=== PATIENT | male | born 1965 | race African-American/Black ===

== ENCOUNTER 2025-01-13 18:14 | Emergency (ER) | payer OTHER, MEDICARE, MEDICAID ==
[~2025-01-13] VITALS: Ht 188 cm; Wt 78.0 kg
[~2025-01-13 18:14] MED LIST: AMLO10TA80 PO; CEFD300C3 MT; CLON0.1T PO
[2025-01-13 18:33] VITALS: BP 144/90; PULSE 102; RESP 18; TEMP 37; O2SAT 98
== END 2025-01-13 20:11 | disposition home or self-care (01) ==
LOC: ER 18:14
DX: F10.129 Alcohol abuse with intoxication, unspecified (principal); J44.9 Chronic obstructive pulmonary disease, unspecified; I10 Essential (primary) hypertension; Z79.899 Other long term (current) drug therapy; V89.2XXA Person injured in unspecified motor-vehicle accident, traffic, initial encounter; Y93.89 Activity, other specified; Y92.410 Unspecified street and highway as the place of occurrence of the external cause; Y99.8 Other external cause status; Y90.9 Presence of alcohol in blood, level not specified
CPT/HCPCS: 99283